=== PATIENT | female | born 1970 | race Asian ===

== ENCOUNTER 2018-10-14 01:19 | Emergency (ER) | payer MEDICAID ==
[~2018-10-14] VITALS: Ht 149.9 cm; Wt 52.3 kg
[2018-10-14] MEDS ORDERED: HYDR25CA PO (03:55)
[2018-10-14 04:02] VITALS: BP 125/76
== END 2018-10-14 04:03 | disposition home or self-care (01) ==
LOC: ER 01:21
DX: F41.9 Anxiety disorder, unspecified (principal); G47.00 Insomnia, unspecified; R51 Headache; I10 Essential (primary) hypertension; Z79.899 Other long term (current) drug therapy
CPT/HCPCS: 93005; 99284